=== PATIENT | female | born 1950 ===

== ENCOUNTER 2018-03-02 10:23 | Emergency (ER) | payer MEDICARE ==
[2018-03-02 10:50] VITALS: BP 123/70
--- NOTE | 2018-03-02 12:05 | UC ---
Respiratory Complaint HPI - HPI Summary HPI Summary: 67 year old female with history of crohns here with complaint of cough, sore throat and hoarseness for 4 days. reports symptoms started with runny nose and dry cough. Now reports loss of voice and pain with swallowing. No other complaints. - History of Current Complaint Chief Complaint: UCGeneralIllness Stated Complaint: VOICE LOSS, SORE THROAT, COUGH Time Seen by Provider: 03/02/18 11:21 Severity Initially: Mild Severity Currently: Mild Pain Intensity: 8 Character: Sputum Description: Associated Signs And Symptoms: Positive: URI, Nasal Congestion, Sinus Discomfort. Negative: Dyspnea, Fever, Wheezing, Hemoptysis, Dizziness - Allergies/Home Medications Allergies/Adverse Reactions: Allergies Allergy/AdvReac Type Severity Reaction Status Date / Time NSAIDS (Non-Steroidal Allergy See Comment Verified 03/02/18 10:44 Anti-Inflamma Home Medications: Home Medications Acetaminophen 650 mg PO Q4H 03/02/18 [History Confirmed 03/02/18] Cholecalciferol (Vitamin D3) [Vitamin D3] 1,000 unit PO DAILY 03/02/18 [History Confirmed 03/02/18] Cholestyramine/Aspartame [Prevalite Packet] 4 gm PO DAILY 03/02/18 [History Confirmed 03/02/18] Losartan Potassium [Cozaar] 50 mg PO DAILY 03/02/18 [History Confirmed 03/02/18] PMH/Surg Hx/FS Hx/Imm Hx Previously Healthy: No - crohns - Surgical History Surgical History: Yes Surgery Procedure, Year, and Place: HYSTERECTOMY. BOWEL SURGERIES X2 - Social History Alcohol Use: None Substance Use Type: None Smoking Status (MU): Former Smoker When Did the Patient Quit Smoking/Using Tobacco: 2006 Review of Systems Constitutional: Chills ENT: Sore Throat, Nasal Discharge, Sinus Congestion, Sinus Pain/Tenderness Respiratory: Cough Genitourinary: Negative Motor: Negative Neurovascular: Negative Musculoskeletal: Negative Neurological: Negative Psychological: Negative All Other Systems Reviewed And Are Negative: Yes Physical Exam Triage Information Reviewed: Yes Appearance: Well-Appearing, No Pain Distress, Well-Nourished Vital Signs: Initial Vital Signs Temp 36.9 C 03/02/18 10:40 Pulse 73 03/02/18 10:40 Resp 16 03/02/18 10:40 BP 123/70 03/02/18 10:40 Pulse Ox 97 03/02/18 10:40 Vital Signs Reviewed: Yes Eye Exam: Normal ENT: Positive: Pharyngeal erythema, Nasal congestion, Nasal drainage, Hoarse voice, Sinus tenderness, Uvula midline. Negative: Tonsillar swelling, Tonsillar exudate, Trismus Neck: Positive: Supple Cardiovascular Exam: Normal Abdominal Exam: Normal Musculoskeletal Exam: Normal Neurological Exam: Normal Diagnostic Evaluation - Laboratory O2 Sat by Pulse Oximetry: 97 Respiratory Course/Dx - Differential Dx/Diagnosis Differential Diagnosis/HQI/PQRI: Laryngitis, Lower Resp Infection, Sinusitis Provider Diagnoses: Laryngitis. Sinusitis. Bronchitis. Antibiotics rx sent Discharge - Sign-Out/Discharge Documenting (check all that apply): Discharge/Admit/Transfer - Discharge Plan Condition: Good Disposition: HOME Prescriptions: Azithromyxin CYDNEY (NF) [Z-Cydney (Zithromax) 250 mg tabs #6] 2 tab PO .TODAY, THEN 1 DAILY #6 tab GuaiFENesin DM* [Robitussin DM*] 5 ml PO BID PRN #[id number] PRN Reason: Cough Patient Education Materials: Laryngitis (ED), Acute Bronchitis (ED) Referrals: Carlos Berry NP [Primary Care Provider] - Additional Instructions: As tolerated - Billing Disposition and Condition Condition: GOOD Disposition: HOME
== END 2018-03-02 12:21 | disposition home or self-care (01) ==
LOC: UCCORT 10:23
DX: J04.0 Acute laryngitis (principal); J32.9 Chronic sinusitis, unspecified; J40 Bronchitis, not specified as acute or chronic; Z88.6 Allergy status to analgesic agent; Z87.891 Personal history of nicotine dependence
CPT/HCPCS: 99202; G0463